=== PATIENT | male | born 1950 | race Caucasian/White ===

== ENCOUNTER 2021-07-03 05:06 | Inpatient (IN) | payer MEDICARE, MEDICAID ==
[~2021-07-03] VITALS: Ht 172.7 cm; Wt 93.9 kg
[2021-07-03 05:51] LABS: BASOPHILS % 0.3 % (0.0-2.0); EOSINOPHILS % 0.8 % (0.0-5.0); HEMATOCRIT. 37.3 % (42.0-52.0); HEMOGLOBIN. 12.5 g/dL (14.0-18.0); LYMPHOCYTES % 8.2 % (20.0-50.0); MEAN CORPUSCULAR HEMOGLOBIN 31.1 pg (28.0-32.0); MEAN CORPUSCULAR VOLUME 92.7 fL (80.0-94.0); MEAN PLATELET VOLUME 8.7 fl (7.4-10.4); MONOCYTES % 5.8 % (2.0-8.0); NEUTROPHILS % 84.9 % (40.0-76.0); PLATELET 115 x1000/uL (130-400); RED BLOOD CELL COUNT 4.03 mill/uL (4.7-6.1); RED CELL DISTRIBUTION WIDTH 16.5 % (11.6-14.6)
[2021-07-03 05:57] LABS: CHLORIDE 102 mEq/L (98-107)
[2021-07-03 11:40] LABS: T4 FREE 1.05 ng/dL (0.76-1.46)
[2021-07-03] MEDS ORDERED: DIPHENHYDRAMINE 50MG/ML VIAL IV PRN (11:45)
[2021-07-03] MEDS ORDERED: ZOLPIDEM TARTRATE 5MG TABLET PO PRN (11:45)
[2021-07-03] MEDS ORDERED: ACETAMINOPHEN 325MG TABLET PO PRN ×2 (11:45)
[2021-07-03] MEDS ORDERED: DEXTROSE 50% WATER 50ML SYRINGE IV PRN (11:45)
[2021-07-03] MEDS ORDERED: ENOXAPARIN 40MG/0.4ML SYR SUBCUT SCH (11:45)
[2021-07-03] MEDS ORDERED: DOCUSATE SODIUM 100MG CAPSULE PO PRN (11:45)
[2021-07-03] MEDS ORDERED: NITROGLYCERIN 0.4MG TABLET SL SL PRN (11:45)
[2021-07-03] MEDS ORDERED: MAGNESIUM/ALUMINUM HYDROXIDE/SIMETHICONE 30ML UDC PO PRN (11:45)
[2021-07-03] MEDS ORDERED: ONDANSETRON HCL 4MG/2ML INJ IV PRN (11:45)
[2021-07-03] MEDS ORDERED: TRAMADOL 50MG TABLET PO PRN (11:45)
[2021-07-03] MEDS ORDERED: GUAIFENESIN 200MG/10ML SUGAR FREE UDC PO PRN (11:45)
[2021-07-03] MEDS: BLOOD SUGAR DIAGNOSTIC STRIP TEST SCH ×3 (13:00→20:47)
[2021-07-03 13:12] LABS: FOLIC ACID (FOLATE) SERUM 6.1 ng/mL (>5.38)
[2021-07-03] MEDS: INSULIN LISPRO 100 UNITS/ML SUBCUT SCH ×3 (13:20→21:00)
[2021-07-03 13:59] LABS: HEPATITIS B SURFACE ANTIGEN NEGATIVE
[2021-07-03] MEDS: SEVELAMER CARBONATE 800 MG TABLET PO SCH ×2 (14:48→17:48)
[2021-07-03] MEDS: FAMOTIDINE 20MG TABLET PO SCH (14:48)
[2021-07-03] MEDS: ENOXAPARIN 30MG/0.3ML SYR SUBCUT SCH (14:52)
[2021-07-03 16:00] VITALS: BP 154/64
[2021-07-03 17:00] VITALS: BP 154/64
[2021-07-03 20:49] VITALS: BP 104/46
[2021-07-03] MEDS ORDERED: FAMOTIDINE 20MG TABLET PO SCH (21:00)
[2021-07-03] MEDS: ASCORBIC ACID 500 MG TABLET PO SCH (21:32)
[2021-07-04] VITALS: BP 105/48
[2021-07-04 00:40] LABS: CREATINE KINASE MB FRACTION 2.6 ng/mL (0.5-3.6)
[2021-07-04 04:05] VITALS: BP 137/69
[2021-07-04] MEDS: BLOOD SUGAR DIAGNOSTIC STRIP TEST SCH ×4 (05:33→20:35)
[2021-07-04 07:30] LABS: BASOPHILS % 0.8 % (0.0-2.0); EOSINOPHILS % 2.2 % (0.0-5.0); HEMATOCRIT. 32.2 % (42.0-52.0); HEMOGLOBIN. 10.8 g/dL (14.0-18.0); LYMPHOCYTES % 11.7 % (20.0-50.0); MEAN CORPUSCULAR HEMOGLOBIN 30.9 pg (28.0-32.0); MEAN CORPUSCULAR VOLUME 92.4 fL (80.0-94.0); MEAN PLATELET VOLUME 9.2 fl (7.4-10.4); NEUTROPHILS % 74.3 % (40.0-76.0); PLATELET 83 x1000/uL (130-400); RED BLOOD CELL COUNT 3.49 mill/uL (4.7-6.1); RED CELL DISTRIBUTION WIDTH 16.3 % (11.6-14.6)
[2021-07-04 07:37] LABS: CHLORIDE 106 mEq/L (98-107)
[2021-07-04] MEDS: INSULIN LISPRO 100 UNITS/ML SUBCUT SCH ×4 (07:40→20:35)
[2021-07-04 07:47] LABS: PHOSPHORUS 3.5 mg/dL (2.5-4.9)
[2021-07-04 08:00] VITALS: BP 132/65
[2021-07-04] MEDS: ENOXAPARIN 30MG/0.3ML SYR SUBCUT SCH (09:00)
[2021-07-04] MEDS: ASCORBIC ACID 500 MG TABLET PO SCH ×3 (10:25→20:38)
[2021-07-04] MEDS: CHOLECALCIFEROL (D3) 1000 UNIT TABLET PO SCH (10:25)
[2021-07-04] MEDS: FAMOTIDINE 20MG TABLET PO SCH (10:25)
[2021-07-04] MEDS: ZINC SULFATE 220 MG ( 50 ) CAPSULE PO SCH (10:26)
[2021-07-04] MEDS: SEVELAMER CARBONATE 800 MG TABLET PO SCH ×3 (10:26→17:40)
[2021-07-04] MEDS: ASPIRIN 325MG EC TABLET PO SCH (10:27)
[2021-07-04 12:00] VITALS: BP 138/68
[2021-07-04] MEDS: FOLIC ACID/VITAMIN B COMP W-C TABLET PO SCH (15:34)
[2021-07-04 16:00] VITALS: BP 140/70
[2021-07-04 20:00] VITALS: BP 147/117
[2021-07-04] MEDS: IPRATROPIUM/ALBUTEROL 0.5-3(2.5)MG/3ML NEB NEB PRN (23:51)
[2021-07-05] VITALS (8 sets, daily range): BP systolic 132–186; BP diastolic 51–92
[2021-07-05] MEDS: BLOOD SUGAR DIAGNOSTIC STRIP TEST SCH ×4 (07:20→21:30)
[2021-07-05] MEDS: INSULIN LISPRO 100 UNITS/ML SUBCUT SCH ×4 (07:20→21:00)
[2021-07-05 07:43] LABS: BASOPHILS % 0.8 % (0.0-2.0); EOSINOPHILS % 1.9 % (0.0-5.0); HEMOGLOBIN. 10.9 g/dL (14.0-18.0); LYMPHOCYTES % 13.5 % (20.0-50.0); MEAN CORPUSCULAR HEMOGLOBIN 31.4 pg (28.0-32.0); MEAN CORPUSCULAR VOLUME 92.6 fL (80.0-94.0); MEAN PLATELET VOLUME 9.5 fl (7.4-10.4); MONOCYTES % 9.7 % (2.0-8.0); NEUTROPHILS % 74.1 % (40.0-76.0); PLATELET 64 x1000/uL (130-400); RED BLOOD CELL COUNT 3.46 mill/uL (4.7-6.1); RED CELL DISTRIBUTION WIDTH 16.5 % (11.6-14.6)
[2021-07-05 07:53] LABS: PHOSPHORUS 4.1 mg/dL (2.5-4.9)
[2021-07-05] MEDS: ZINC SULFATE 220 MG ( 50 ) CAPSULE PO SCH (08:08)
[2021-07-05] MEDS: FOLIC ACID/VITAMIN B COMP W-C TABLET PO SCH (08:08)
[2021-07-05] MEDS: SEVELAMER CARBONATE 800 MG TABLET PO SCH ×3 (08:08→16:57)
[2021-07-05] MEDS: ASPIRIN 325MG EC TABLET PO SCH (08:09)
[2021-07-05] MEDS: CLONIDINE 0.1MG TABLET PO PRN (08:09)
[2021-07-05] MEDS: FAMOTIDINE 20MG TABLET PO SCH (08:09)
[2021-07-05] MEDS: CHOLECALCIFEROL (D3) 1000 UNIT TABLET PO SCH (08:09)
[2021-07-05] MEDS: ASCORBIC ACID 500 MG TABLET PO SCH ×2 (08:09→21:41)
[2021-07-05] MEDS: ENOXAPARIN 40MG/0.4ML SYR SUBCUT SCH (08:14)
[2021-07-05] MEDS ORDERED: SODIUM POLYSTYRENE SULFONATE 15 G/60 ML BOT PO SCH (10:45)
[2021-07-05] MEDS: HYDRALAZINE HCL 25MG TABLET PO SCH ×2 (13:22→21:41)
[2021-07-05] MEDS ORDERED: NALOXONE HCL 0.4MG/ML VIAL IV PRN (17:15)
[2021-07-06] MEDS: IPRATROPIUM/ALBUTEROL 0.5-3(2.5)MG/3ML NEB NEB PRN (01:10)
[2021-07-06 03:58] VITALS: BP 147/65
[2021-07-06] MEDS: HYDRALAZINE HCL 25MG TABLET PO SCH ×3 (06:00→21:14)
[2021-07-06] MEDS: BLOOD SUGAR DIAGNOSTIC STRIP TEST SCH ×4 (07:05→21:12)
[2021-07-06] MEDS: INSULIN LISPRO 100 UNITS/ML SUBCUT SCH ×4 (07:06→21:00)
[2021-07-06 08:00] VITALS: BP 146/71
[2021-07-06 08:20] LABS: BASOPHILS % 0.8 % (0.0-2.0); EOSINOPHILS % 2.9 % (0.0-5.0); HEMATOCRIT. 31.7 % (42.0-52.0); HEMOGLOBIN. 10.7 g/dL (14.0-18.0); LYMPHOCYTES % 14.3 % (20.0-50.0); MEAN CORPUSCULAR HEMOGLOBIN 31.3 pg (28.0-32.0); MEAN CORPUSCULAR VOLUME 93.1 fL (80.0-94.0); MEAN PLATELET VOLUME 9.1 fl (7.4-10.4); MONOCYTES % 9.3 % (2.0-8.0); NEUTROPHILS % 72.7 % (40.0-76.0); PLATELET 56 x1000/uL (130-400); RED CELL DISTRIBUTION WIDTH 15.9 % (11.6-14.6)
[2021-07-06] MEDS: ENOXAPARIN 40MG/0.4ML SYR SUBCUT SCH (08:25)
[2021-07-06] MEDS: ASPIRIN 325MG EC TABLET PO SCH (08:31)
[2021-07-06] MEDS: FOLIC ACID/VITAMIN B COMP W-C TABLET PO SCH (08:31)
[2021-07-06] MEDS: ZINC SULFATE 220 MG ( 50 ) CAPSULE PO SCH (08:31)
[2021-07-06] MEDS: SEVELAMER CARBONATE 800 MG TABLET PO SCH ×3 (08:31→16:40)
[2021-07-06] MEDS: ASCORBIC ACID 500 MG TABLET PO SCH ×2 (08:32→21:15)
[2021-07-06] MEDS: CHOLECALCIFEROL (D3) 1000 UNIT TABLET PO SCH (08:32)
[2021-07-06] MEDS: FAMOTIDINE 20MG TABLET PO SCH (08:32)
[2021-07-06 08:42] LABS: PHOSPHORUS 4.9 mg/dL (2.5-4.9)
[2021-07-06 12:00] VITALS: BP 154/58
[2021-07-06 16:00] VITALS: BP 172/76
[2021-07-06] MEDS: CLONIDINE 0.1MG TABLET PO PRN (16:33)
[2021-07-06 20:00] VITALS: BP 112/61
[2021-07-07] VITALS: BP 142/72
[2021-07-07 04:00] VITALS: BP 153/68
[2021-07-07] MEDS: HYDRALAZINE HCL 25MG TABLET PO SCH (05:25)
[2021-07-07] MEDS: BLOOD SUGAR DIAGNOSTIC STRIP TEST SCH (07:19)
[2021-07-07] MEDS: INSULIN LISPRO 100 UNITS/ML SUBCUT SCH (07:19)
[2021-07-07 08:00] VITALS: BP 167/63
[2021-07-07] MEDS: FOLIC ACID/VITAMIN B COMP W-C TABLET PO SCH (09:22)
[2021-07-07] MEDS: ASPIRIN 325MG EC TABLET PO SCH (09:23)
[2021-07-07] MEDS: FAMOTIDINE 20MG TABLET PO SCH (09:23)
[2021-07-07] MEDS: SEVELAMER CARBONATE 800 MG TABLET PO SCH (09:23)
[2021-07-07] MEDS: CHOLECALCIFEROL (D3) 1000 UNIT TABLET PO SCH (09:23)
[2021-07-07] MEDS: ASCORBIC ACID 500 MG TABLET PO SCH (09:23)
[2021-07-07] MEDS: ZINC SULFATE 220 MG ( 50 ) CAPSULE PO SCH (09:24)
[2021-07-07 11:55] VITALS: BP 145/69
== END 2021-07-07 15:00 | disposition home or self-care (01) | DRG 291 ==
LOC: ER 05:06 → EDBEDREQTM 08:32 → EDBEDREQ 08:32 → 8WST 09:33 → EDBEDREQTM 09:43 → EDBEDREQ 09:43 → SUPCPDRO 11:00 → ENRESERV 13:06 → 8WST 07-04 19:59
PROVIDERS: ADMIT Internal Medicine; ATTEND Internal Medicine
PROC: 5A1D70Z Performance of Urinary Filtration, Intermittent, Less than 6 Hours Per Day (ICD-10-PCS; principal; 2021-07-04)
PROC: 5A1D70Z Performance of Urinary Filtration, Intermittent, Less than 6 Hours Per Day (ICD-10-PCS; 2021-07-06)
DX: I13.2 Hypertensive heart and chronic kidney disease with heart failure and with stage 5 chronic kidney disease, or end stage renal disease (principal); N18.6 End stage renal disease; I50.33 Acute on chronic diastolic (congestive) heart failure; E11.22 Type 2 diabetes mellitus with diabetic chronic kidney disease; D63.1 Anemia in chronic kidney disease; D69.6 Thrombocytopenia, unspecified; E78.5 Hyperlipidemia, unspecified; E83.39 Other disorders of phosphorus metabolism; E87.5 Hyperkalemia; F32.9 Major depressive disorder, single episode, unspecified; I27.20 Pulmonary hypertension, unspecified; I48.91 Unspecified atrial fibrillation; H54.3 Unqualified visual loss, both eyes; Z20.822 Contact with and (suspected) exposure to COVID-19; Z79.899 Other long term (current) drug therapy; Z79.4 Long term (current) use of insulin; Z79.01 Long term (current) use of anticoagulants; Z99.2 Dependence on renal dialysis; Z86.15 Personal history of latent tuberculosis infection; Z86.73 Personal history of transient ischemic attack (TIA), and cerebral infarction without residual deficits
CPT/HCPCS: 36415; 71045; 80048; 80053; 80061; 80069; 82550; 82553; 82607; 82746; 82962; 83036; 83540; 83550; 83605; 83735; 83880; 84100; 84145; 84439; 84443; 84484; 85025; 86705; 86709; 86803; 87340; 87426; 93005; 93306; 93970; 94640; 94664; 97162; 97166; 97535; 99291; C9803; J1650

== ENCOUNTER 2021-11-29 09:02 | Inpatient (IN) | payer MEDICARE, MEDICAID ==
[~2021-11-29] VITALS: Ht 167.6 cm; Wt 90.7 kg
[2021-11-29] MEDS ORDERED: TETRACAINE 0.5% OPHTH DROPS 4ML RIGHTEYE ONE (10:45)
[2021-11-29] MEDS ORDERED: FLUORESCEIN SODIUM 1MG/STRIP RIGHTEYE ONE (10:45)
[2021-11-29 10:49] LABS: BASOPHILS % 0.7 % (0.0-2.0); EOSINOPHILS % 1.8 % (0.0-5.0); HEMATOCRIT. 34.8 % (42.0-52.0); HEMOGLOBIN. 11.7 g/dL (14.0-18.0); MEAN CORPUSCULAR HEMOGLOBIN 31.9 pg (28.0-32.0); MEAN CORPUSCULAR VOLUME 94.6 fL (80.0-94.0); MEAN PLATELET VOLUME 9.6 fl (7.4-10.4); NEUTROPHILS % 80.5 % (40.0-76.0); PLATELET 90 x1000/uL (130-400); RED BLOOD CELL COUNT 3.68 mill/uL (4.7-6.1); RED CELL DISTRIBUTION WIDTH 15.6 % (11.6-14.6)
[2021-11-29 10:53] LABS: CHLORIDE 105 mEq/L (98-107)
[2021-11-29 10:53] LABS: CLARITY URINE CLOUDY (CLEAR); COLOR URINE YELLOW (YELLOW); KETONES URINE TRACE (NEGATIVE); LEUKOCYTE ESTERASE URINE 2+ (NEGATIVE); NITRITE URINE NEGATIVE (NEGATIVE); OCCULT BLOOD URINE 2+ (NEGATIVE); PROTEIN URINE 3+ (NEGATIVE); SPECIFIC GRAVITY URINE 1.016 (1.005-1.030)
[2021-11-29] MEDS ORDERED: CEFTRIAXONE 2 G in DEXTROSE 5% WATER 50 ML IV NR (12:00)
[2021-11-29] MEDS ORDERED: SODIUM CHLORIDE 0.9% 500 ML IV ONE (12:15)
[2021-11-29] MEDS ORDERED: NITROGLYCERIN 0.4MG TABLET SL SL PRN (16:15)
[2021-11-29] MEDS ORDERED: IPRATROPIUM/ALBUTEROL 0.5-3(2.5)MG/3ML NEB NEB PRN (16:15)
[2021-11-29] MEDS ORDERED: DOCUSATE SODIUM 100MG CAPSULE PO PRN (16:15)
[2021-11-29] MEDS ORDERED: ONDANSETRON HCL 4MG/2ML INJ IV PRN (16:15)
[2021-11-29] MEDS ORDERED: GUAIFENESIN 200MG/10ML SUGAR FREE UDC PO PRN (16:15)
[2021-11-29] MEDS ORDERED: MAGNESIUM/ALUMINUM HYDROXIDE/SIMETHICONE 30ML UDC PO PRN (16:15)
[2021-11-29] MEDS ORDERED: ACETAMINOPHEN 325MG TABLET PO PRN (16:15)
[2021-11-29] MEDS ORDERED: DEXTROSE 50% WATER 50ML SYRINGE IV PRN (16:30)
[2021-11-29] MEDS ORDERED: PIPERACILLIN/TAZ 3.375G PREMIX 50 ML IV SCH (17:30)
[2021-11-29] MEDS ORDERED: VANCOMYCIN 1500MG in DEXTROSE 5% WATER 250ML IV NR (18:00)
[2021-11-29 20:00] VITALS: BP 150/57
[2021-11-29] MEDS: INSULIN LISPRO 100 UNITS/ML SUBCUT SCH (21:00)
[2021-11-29] MEDS: BLOOD SUGAR DIAGNOSTIC STRIP TEST SCH (21:00)
[2021-11-29] MEDS: SEVELAMER CARBONATE 800 MG TABLET PO SCH (21:59)
[2021-11-29] MEDS: ENOXAPARIN 30MG/0.3ML SYR SUBCUT SCH (21:59)
[2021-11-29] MEDS: ZOLPIDEM TARTRATE 5MG TABLET PO PRN (22:00)
[2021-11-29] MEDS: FAMOTIDINE 20MG TABLET PO SCH (22:00)
[2021-11-29] MEDS: PIPERACILLIN/TAZOBACTAM 3.375 G in DEXTROSE 5% WATER 50 ML IV SCH (22:00)
[2021-11-30] VITALS: BP 157/61
[2021-11-30 04:00] VITALS: BP 131/76
[2021-11-30] MEDS: BLOOD SUGAR DIAGNOSTIC STRIP TEST SCH ×4 (06:18→21:00)
[2021-11-30 06:23] LABS: BASOPHILS % 1.5 % (0.0-2.0); EOSINOPHILS % 6.8 % (0.0-5.0); HEMATOCRIT. 33.3 % (42.0-52.0); LYMPHOCYTES % 11.4 % (20.0-50.0); MEAN CORPUSCULAR HEMOGLOBIN 31.6 pg (28.0-32.0); MEAN CORPUSCULAR VOLUME 95.3 fL (80.0-94.0); MEAN PLATELET VOLUME 9.6 fl (7.4-10.4); NEUTROPHILS % 70.3 % (40.0-76.0); PLATELET 82 x1000/uL (130-400); RED BLOOD CELL COUNT 3.49 mill/uL (4.7-6.1); RED CELL DISTRIBUTION WIDTH 15.7 % (11.6-14.6)
[2021-11-30 06:59] LABS: CHLORIDE 108 mEq/L (98-107)
[2021-11-30] MEDS: INSULIN LISPRO 100 UNITS/ML SUBCUT SCH ×4 (07:40→21:00)
[2021-11-30 08:00] VITALS: BP 149/69
[2021-11-30] MEDS: PIPERACILLIN/TAZOBACTAM 3.375 G in DEXTROSE 5% WATER 50 ML IV SCH ×2 (08:44→22:21)
[2021-11-30] MEDS: FAMOTIDINE 20MG TABLET PO SCH ×2 (08:45→22:35)
[2021-11-30] MEDS: ASPIRIN 325MG EC TABLET PO SCH (08:45)
[2021-11-30] MEDS: SEVELAMER CARBONATE 800 MG TABLET PO SCH ×3 (08:45→17:04)
[2021-11-30] MEDS ORDERED: PIPERACILLIN/TAZOBACTAM 3.375 G in DEXTROSE 5% WATER 50 ML IV SCH (09:00)
[2021-11-30 09:27] LABS: *AMPHETAMINES SCREEN URINE NEGATIVE (NEGATIVE); *BARBITURATES SCREEN URINE NEGATIVE (NEGATIVE); *BENZODIAZEPINES SCREEN URINE NEGATIVE (NEGATIVE); *COCAINE SCREEN URINE NEGATIVE (NEGATIVE); CANNABINOID URINE SCREEN NEGATIVE (NEGATIVE); METHADONE URINE SCREEN NEGATIVE (NEGATIVE); OPIATES URINE SCREEN NEGATIVE (NEGATIVE); PHENCYCLIDINE URINE SCREEN NEGATIVE (NEGATIVE)
[2021-11-30] MEDS: FOLIC ACID/VITAMIN B COMP W-C TABLET PO SCH (11:50)
[2021-11-30 12:00] VITALS: BP 121/47
[2021-11-30 16:00] VITALS: BP 126/63
[2021-11-30] MEDS: ENOXAPARIN 30MG/0.3ML SYR SUBCUT SCH (17:04)
[2021-11-30 20:00] VITALS: BP 140/80
[2021-11-30] MEDS: ZOLPIDEM TARTRATE 5MG TABLET PO PRN (20:50)
[2021-12-01] VITALS: BP 112/70
[2021-12-01 04:00] VITALS: BP 121/70
[2021-12-01] MEDS: INSULIN LISPRO 100 UNITS/ML SUBCUT SCH ×4 (05:22→20:16)
[2021-12-01] MEDS: BLOOD SUGAR DIAGNOSTIC STRIP TEST SCH ×4 (05:22→20:16)
[2021-12-01 08:00] VITALS: BP 193/73
[2021-12-01 09:01] LABS: HEPATITIS B SURFACE ANTIGEN NEGATIVE
[2021-12-01] MEDS: FAMOTIDINE 20MG TABLET PO SCH ×2 (09:33→20:04)
[2021-12-01] MEDS: ASPIRIN 325MG EC TABLET PO SCH (09:33)
[2021-12-01] MEDS: SEVELAMER CARBONATE 800 MG TABLET PO SCH ×2 (09:33→18:40)
[2021-12-01] MEDS: CLONIDINE 0.1MG TABLET PO PRN (09:34)
[2021-12-01] MEDS: PIPERACILLIN/TAZOBACTAM 3.375 G in DEXTROSE 5% WATER 50 ML IV SCH ×2 (09:39→20:04)
[2021-12-01] MEDS: FOLIC ACID/VITAMIN B COMP W-C TABLET PO SCH (09:39)
[2021-12-01] MEDS: NIFEDIPINE XL 60MG TAB PO SCH (11:54)
[2021-12-01 12:11] VITALS: BP 177/61
[2021-12-01] MEDS ORDERED: VANCOMYCIN 750MG PREMIX 150 ML IV NR (15:00)
[2021-12-01 16:10] VITALS: BP 150/61
[2021-12-01] MEDS: ENOXAPARIN 30MG/0.3ML SYR SUBCUT SCH (18:39)
[2021-12-01 20:00] VITALS: BP 145/60
[2021-12-01] MEDS: ZOLPIDEM TARTRATE 5MG TABLET PO PRN (20:04)
[2021-12-02] VITALS: BP 135/60
[2021-12-02 04:00] VITALS: BP 140/65
[2021-12-02] MEDS: BLOOD SUGAR DIAGNOSTIC STRIP TEST SCH ×4 (05:27→20:27)
[2021-12-02] MEDS: INSULIN LISPRO 100 UNITS/ML SUBCUT SCH ×4 (05:27→20:28)
[2021-12-02 08:00] VITALS: BP 140/71
[2021-12-02] MEDS: ACETAMINOPHEN 325MG TABLET PO PRN (09:44)
[2021-12-02] MEDS: FOLIC ACID/VITAMIN B COMP W-C TABLET PO SCH (09:45)
[2021-12-02] MEDS: ASPIRIN 325MG EC TABLET PO SCH (09:45)
[2021-12-02] MEDS: FAMOTIDINE 20MG TABLET PO SCH (09:45)
[2021-12-02] MEDS: SEVELAMER CARBONATE 800 MG TABLET PO SCH ×3 (09:45→18:07)
[2021-12-02] MEDS: NIFEDIPINE XL 60MG TAB PO SCH (11:49)
[2021-12-02] MEDS: PIPERACILLIN/TAZOBACTAM 3.375 G in DEXTROSE 5% WATER 50 ML IV SCH (11:52)
[2021-12-02 12:00] VITALS: BP 178/78
[2021-12-02 16:00] VITALS: BP 168/80
[2021-12-02] MEDS: ENOXAPARIN 30MG/0.3ML SYR SUBCUT SCH (17:00)
[2021-12-02 20:00] VITALS: BP 145/80
[2021-12-02] MEDS: CEFEPIME 1,000 MG in DEXTROSE 5% WATER 50 ML IV SCH (21:29)
[2021-12-03] VITALS: BP 140/75
[2021-12-03] MEDS: DIPHENHYDRAMINE 50MG/ML VIAL IV PRN ×2 (01:11→20:52)
[2021-12-03] MEDS: ACETAMINOPHEN 325MG TABLET PO PRN (01:12)
[2021-12-03 04:00] VITALS: BP 141/63
[2021-12-03] MEDS: INSULIN LISPRO 100 UNITS/ML SUBCUT SCH ×4 (06:08→20:53)
[2021-12-03] MEDS: BLOOD SUGAR DIAGNOSTIC STRIP TEST SCH ×4 (06:08→20:53)
[2021-12-03 07:17] LABS: BASOPHILS % 1.2 % (0.0-2.0); EOSINOPHILS % 5.2 % (0.0-5.0); HEMATOCRIT. 31.8 % (42.0-52.0); HEMOGLOBIN. 10.9 g/dL (14.0-18.0); LYMPHOCYTES % 11.9 % (20.0-50.0); MEAN CORPUSCULAR HEMOGLOBIN 31.5 pg (28.0-32.0); MEAN PLATELET VOLUME 9.4 fl (7.4-10.4); NEUTROPHILS % 72.7 % (40.0-76.0); PLATELET 81 x1000/uL (130-400); RED BLOOD CELL COUNT 3.45 mill/uL (4.7-6.1); RED CELL DISTRIBUTION WIDTH 15.4 % (11.6-14.6)
[2021-12-03 07:35] LABS: CHLORIDE 106 mEq/L (98-107)
[2021-12-03 08:00] VITALS: BP 100/66
[2021-12-03] MEDS: NIFEDIPINE XL 60MG TAB PO SCH ×2 (09:00→12:17)
[2021-12-03] MEDS: FOLIC ACID/VITAMIN B COMP W-C TABLET PO SCH (09:25)
[2021-12-03] MEDS: FAMOTIDINE 20MG TABLET PO SCH (09:25)
[2021-12-03] MEDS: SEVELAMER CARBONATE 800 MG TABLET PO SCH ×3 (09:25→18:07)
[2021-12-03] MEDS: ASPIRIN 325MG EC TABLET PO SCH (09:25)
[2021-12-03 12:00] VITALS: BP 208/61
[2021-12-03] MEDS: CLONIDINE 0.1MG TABLET PO PRN (12:17)
[2021-12-03] MEDS ORDERED: LOSARTAN POTASSIUM 50 MG TABLET PO SCH (13:00)
[2021-12-03 16:00] VITALS: BP 159/73
[2021-12-03] MEDS: LOSARTAN POTASSIUM 50 MG TABLET PO SCH (18:07)
[2021-12-03 20:00] VITALS: BP 109/57
[2021-12-03] MEDS: CEFEPIME 1,000 MG in DEXTROSE 5% WATER 50 ML IV SCH (20:52)
[2021-12-03] MEDS: ZOLPIDEM TARTRATE 5MG TABLET PO PRN (20:52)
[2021-12-04] VITALS: BP 147/80
[2021-12-04 04:00] VITALS: BP 155/85
[2021-12-04] MEDS: INSULIN LISPRO 100 UNITS/ML SUBCUT SCH ×4 (05:33→20:27)
[2021-12-04] MEDS: BLOOD SUGAR DIAGNOSTIC STRIP TEST SCH ×4 (05:33→20:27)
[2021-12-04 08:03] VITALS: BP 155/66
[2021-12-04] MEDS: ASPIRIN 325MG EC TABLET PO SCH (09:18)
[2021-12-04] MEDS: LOSARTAN POTASSIUM 50 MG TABLET PO SCH (09:18)
[2021-12-04] MEDS: SEVELAMER CARBONATE 800 MG TABLET PO SCH ×3 (09:19→18:49)
[2021-12-04] MEDS: NIFEDIPINE XL 60MG TAB PO SCH (09:19)
[2021-12-04] MEDS: FAMOTIDINE 20MG TABLET PO SCH (09:19)
[2021-12-04] MEDS: FOLIC ACID/VITAMIN B COMP W-C TABLET PO SCH (09:19)
[2021-12-04 12:00] VITALS: BP 140/82
[2021-12-04] MEDS ORDERED: CEFAZOLIN 1000MG PREMIX 50 ML IV SCH (14:00)
[2021-12-04] MEDS ORDERED: HYDR100T26 PO (15:31)
[2021-12-04] MEDS ORDERED: SEVE800T8 PO (15:31)
[2021-12-04] MEDS ORDERED: APIX5TAB PO (15:31)
[2021-12-04] MEDS ORDERED: ACET125T3 MT (15:31)
[2021-12-04] MEDS ORDERED: GLIP5TAB12 PO (15:31)
[2021-12-04] MEDS ORDERED: NIFE20CA PO (15:31)
[2021-12-04 16:00] VITALS: BP 120/82
[2021-12-04] MEDS: CEFAZOLIN 1000MG PREMIX 50 ML IV SCH ×2 (16:00→16:35)
[2021-12-04] MEDS ORDERED: ROPIVACAINE HCL/PF EPIDURAL 200 ML EPI ONE (18:53)
[2021-12-04 20:00] VITALS: BP 130/80
[2021-12-05] VITALS (7 sets, daily range): BP systolic 127–178; BP diastolic 50–75
[2021-12-05] MEDS: BLOOD SUGAR DIAGNOSTIC STRIP TEST SCH ×2 (05:42→12:10)
[2021-12-05] MEDS: INSULIN LISPRO 100 UNITS/ML SUBCUT SCH ×2 (05:43→12:40)
[2021-12-05] MEDS: NIFEDIPINE XL 60MG TAB PO SCH (09:59)
[2021-12-05] MEDS: LOSARTAN POTASSIUM 50 MG TABLET PO SCH (09:59)
[2021-12-05] MEDS: ASPIRIN 325MG EC TABLET PO SCH (10:01)
[2021-12-05] MEDS: FOLIC ACID/VITAMIN B COMP W-C TABLET PO SCH (10:01)
[2021-12-05] MEDS: FAMOTIDINE 20MG TABLET PO SCH (10:01)
[2021-12-05] MEDS: SEVELAMER CARBONATE 800 MG TABLET PO SCH ×2 (10:01→14:26)
[2021-12-05] MEDS: ACETAMINOPHEN 325MG TABLET PO PRN (12:05)
[2021-12-05] MEDS: CEFAZOLIN 1000MG PREMIX 50 ML IV SCH (15:45)
== END 2021-12-05 18:18 | DRG 871 ==
LOC: ER 09:02 → ENRESERV 12:47 → CANRESERV 12:47 → 8WST 14:01 → EDBEDREQ 14:05 → EDBEDREQTM 14:05 → EDBEDREQSVC 16:34 → ENRESERV 16:39
PROVIDERS: ADMIT Internal Medicine; ATTEND Internal Medicine
PROC: 5A1D70Z Performance of Urinary Filtration, Intermittent, Less than 6 Hours Per Day (ICD-10-PCS; principal; 2021-11-30)
PROC: 5A1D70Z Performance of Urinary Filtration, Intermittent, Less than 6 Hours Per Day (ICD-10-PCS; 2021-12-02)
PROC: 5A1D70Z Performance of Urinary Filtration, Intermittent, Less than 6 Hours Per Day (ICD-10-PCS; 2021-12-05)
DX: A41.9 Sepsis, unspecified organism (principal); G92.8 Other toxic encephalopathy; N18.6 End stage renal disease; I13.2 Hypertensive heart and chronic kidney disease with heart failure and with stage 5 chronic kidney disease, or end stage renal disease; N39.0 Urinary tract infection, site not specified; I69.351 Hemiplegia and hemiparesis following cerebral infarction affecting right dominant side; B96.20 Unspecified Escherichia coli [E. coli] as the cause of diseases classified elsewhere; D63.1 Anemia in chronic kidney disease; K80.20 Calculus of gallbladder without cholecystitis without obstruction; D69.6 Thrombocytopenia, unspecified; K76.0 Fatty (change of) liver, not elsewhere classified; E11.22 Type 2 diabetes mellitus with diabetic chronic kidney disease; E87.6 Hypokalemia; I50.9 Heart failure, unspecified; Z20.822 Contact with and (suspected) exposure to COVID-19; Z99.2 Dependence on renal dialysis; Z79.4 Long term (current) use of insulin; Z83.3 Family history of diabetes mellitus; Z82.49 Family history of ischemic heart disease and other diseases of the circulatory system
CPT/HCPCS: 36415; 70551; 71045; 76700; 80053; 80069; 80202; 80305; 81003; 82140; 82962; 83036; 83605; 83735; 84100; 84484; 85025; 86705; 86709; 86803; 87077; 87186; 87340; 87426; 93970; 97110; 97116; 97162; 97166; 99285; C1893; J0690; J0692; J0696; J1200; J1650; J2543; J2795; J3370; J7060

== ENCOUNTER 2022-01-04 09:33 | Inpatient (IN) | payer MEDICARE, MEDICAID ==
[~2022-01-04] VITALS: Ht 167.6 cm; Wt 88.5 kg
[~2022-01-04 09:33] MED LIST: ACET125T3 MT; APIX5TAB PO; GLIP5TAB12 PO; HYDR100T26 PO; NIFE20CA PO; SEVE800T8 PO
[2022-01-04 11:34] LABS: EOSINOPHILS % 4.2 % (0.0-5.0); HEMATOCRIT. 30.5 % (42.0-52.0); HEMOGLOBIN. 10.1 g/dL (14.0-18.0); LYMPHOCYTES % 14.6 % (20.0-50.0); MEAN CORPUSCULAR HEMOGLOBIN 32.7 pg (28.0-32.0); MEAN CORPUSCULAR VOLUME 98.7 fL (80.0-94.0); MEAN PLATELET VOLUME 9.3 fl (7.4-10.4); MONOCYTES % 7.2 % (2.0-8.0); PLATELET 86 x1000/uL (130-400); RED BLOOD CELL COUNT 3.09 mill/uL (4.7-6.1); RED CELL DISTRIBUTION WIDTH 16.6 % (11.6-14.6)
[2022-01-04 11:45] LABS: CHLORIDE 106 mEq/L (98-107)
[2022-01-04] MEDS ORDERED: ONDANSETRON HCL 4MG/2ML INJ IV PRN (14:45)
[2022-01-04] MEDS ORDERED: NA PHOS,M-B/NA PHOS,DI-BA ENEMA 118ML PR PRN (14:45)
[2022-01-04] MEDS ORDERED: DEXTROSE 50% WATER 50ML SYRINGE IV PRN (14:45)
[2022-01-04] MEDS ORDERED: GUAIFENESIN 200MG/10ML SUGAR FREE UDC PO PRN (14:45)
[2022-01-04] MEDS ORDERED: NITROGLYCERIN 0.4MG TABLET SL SL PRN (14:45)
[2022-01-04] MEDS ORDERED: MAGNESIUM/ALUMINUM HYDROXIDE/SIMETHICONE 30ML UDC PO PRN (14:45)
[2022-01-04] MEDS ORDERED: DOCUSATE SODIUM 100MG CAPSULE PO PRN (14:45)
[2022-01-04] MEDS ORDERED: ZOLPIDEM TARTRATE 5MG TABLET PO PRN (14:45)
[2022-01-04] MEDS ORDERED: IPRATROPIUM/ALBUTEROL 0.5-3(2.5)MG/3ML NEB NEB PRN (14:45)
[2022-01-04] MEDS ORDERED: ACETAMINOPHEN 325MG TABLET PO PRN (14:45)
[2022-01-04 16:00] VITALS: BP 155/69
[2022-01-04] MEDS: BLOOD SUGAR DIAGNOSTIC STRIP TEST SCH ×2 (17:20→21:00)
[2022-01-04] MEDS: INSULIN LISPRO 100 UNITS/ML SUBCUT SCH ×2 (17:50→21:00)
[2022-01-04 17:58] VITALS: BP 155/69
[2022-01-04] MEDS: SEVELAMER CARBONATE 800 MG TABLET PO SCH (18:52)
[2022-01-04] MEDS: APIXABAN 2.5 MG TABLET PO SCH (18:52)
[2022-01-04 20:00] VITALS: BP 98/62
[2022-01-05] VITALS (7 sets, daily range): BP systolic 121–169; BP diastolic 53–66
[2022-01-05 02:39] LABS: CREATINE KINASE MB FRACTION 1.5 ng/mL (0.5-3.6)
[2022-01-05] MEDS: ACETAMINOPHEN 325MG TABLET PO PRN (06:02)
[2022-01-05] MEDS: BLOOD SUGAR DIAGNOSTIC STRIP TEST SCH ×4 (06:02→20:30)
[2022-01-05] MEDS: APIXABAN 2.5 MG TABLET PO SCH ×2 (06:02→18:50)
[2022-01-05 07:44] LABS: BASOPHILS % 1.2 % (0.0-2.0); EOSINOPHILS % 3.9 % (0.0-5.0); HEMATOCRIT. 29.7 % (42.0-52.0); HEMOGLOBIN. 9.8 g/dL (14.0-18.0); LYMPHOCYTES % 13.7 % (20.0-50.0); MEAN CORPUSCULAR HEMOGLOBIN 32.8 pg (28.0-32.0); MEAN CORPUSCULAR VOLUME 98.9 fL (80.0-94.0); MEAN PLATELET VOLUME 9.3 fl (7.4-10.4); NEUTROPHILS % 74.2 % (40.0-76.0); PLATELET 74 x1000/uL (130-400); RED BLOOD CELL COUNT 3.01 mill/uL (4.7-6.1); RED CELL DISTRIBUTION WIDTH 16.2 % (11.6-14.6)
[2022-01-05] MEDS: INSULIN LISPRO 100 UNITS/ML SUBCUT SCH ×4 (07:50→20:30)
[2022-01-05 08:02] LABS: CREATINE KINASE MB FRACTION 2.1 ng/mL (0.5-3.6)
[2022-01-05 08:09] LABS: PHOSPHORUS 4.8 mg/dL (2.5-4.9)
[2022-01-05 08:17] LABS: CHLORIDE 104 mEq/L (98-107)
[2022-01-05] MEDS: ASPIRIN 81MG EC TABLET PO SCH (10:18)
[2022-01-05] MEDS: LOSARTAN POTASSIUM 50 MG TABLET PO SCH (10:18)
[2022-01-05] MEDS: SEVELAMER CARBONATE 800 MG TABLET PO SCH ×3 (10:18→18:50)
[2022-01-06] VITALS: BP 136/75
[2022-01-06 04:00] VITALS: BP 125/55
[2022-01-06] MEDS: APIXABAN 2.5 MG TABLET PO SCH ×2 (06:18→17:15)
[2022-01-06] MEDS: BLOOD SUGAR DIAGNOSTIC STRIP TEST SCH ×4 (06:40→21:13)
[2022-01-06] MEDS: INSULIN LISPRO 100 UNITS/ML SUBCUT SCH ×4 (06:41→21:00)
[2022-01-06] MEDS: SEVELAMER CARBONATE 800 MG TABLET PO SCH ×3 (07:57→17:15)
[2022-01-06 08:00] VITALS: BP 183/54
[2022-01-06] MEDS: LOSARTAN POTASSIUM 50 MG TABLET PO SCH (09:00)
[2022-01-06] MEDS: ASPIRIN 81MG EC TABLET PO SCH (09:00)
[2022-01-06 12:00] VITALS: BP 191/71
[2022-01-06 16:00] VITALS: BP 139/70
[2022-01-06] MEDS: ERYTHROMYCIN BASE 0.5% OPHTH OINT 3.5GM BOTHEYE SCH (17:15)
[2022-01-06 20:00] VITALS: BP 164/71
[2022-01-07] VITALS (18 sets, daily range): BP systolic 157–197; BP diastolic 52–98
[2022-01-07] MEDS: ERYTHROMYCIN BASE 0.5% OPHTH OINT 3.5GM BOTHEYE SCH ×3 (01:39→17:49)
[2022-01-07] MEDS: APIXABAN 2.5 MG TABLET PO SCH ×2 (05:17→17:54)
[2022-01-07] MEDS: BLOOD SUGAR DIAGNOSTIC STRIP TEST SCH ×4 (05:26→21:09)
[2022-01-07] MEDS: INSULIN LISPRO 100 UNITS/ML SUBCUT SCH ×4 (07:50→21:00)
[2022-01-07] MEDS: SEVELAMER CARBONATE 800 MG TABLET PO SCH ×3 (09:02→17:49)
[2022-01-07] MEDS: ASPIRIN 81MG EC TABLET PO SCH (09:03)
[2022-01-07 09:05] LABS: BASOPHILS % 0.9 % (0.0-2.0); HEMATOCRIT. 31.6 % (42.0-52.0); HEMOGLOBIN. 10.4 g/dL (14.0-18.0); LYMPHOCYTES % 13.1 % (20.0-50.0); MEAN CORPUSCULAR HEMOGLOBIN 32.6 pg (28.0-32.0); MEAN CORPUSCULAR VOLUME 99.4 fL (80.0-94.0); MEAN PLATELET VOLUME 9.7 fl (7.4-10.4); MONOCYTES % 7.3 % (2.0-8.0); NEUTROPHILS % 74.7 % (40.0-76.0); PLATELET 76 x1000/uL (130-400); RED BLOOD CELL COUNT 3.18 mill/uL (4.7-6.1); RED CELL DISTRIBUTION WIDTH 15.9 % (11.6-14.6)
[2022-01-07] MEDS: LOSARTAN POTASSIUM 50 MG TABLET PO SCH (09:07)
[2022-01-07] MEDS: CLONIDINE 0.1MG TABLET PO PRN ×2 (14:42→22:19)
[2022-01-07 18:21] LABS: PHOSPHORUS 4.5 mg/dL (2.5-4.9)
[2022-01-07] MEDS ORDERED: SODIUM BICARBONATE 8.4% 1 MEQ/ML 50ML SYR IV NR (18:30)
[2022-01-07 19:05] LABS: BG BASE EXCESS -6.5 mmol/L (-2.0-2.0); BG CARBOXYHEMOGLOBIN 0.2 % (0.5-1.5); BG DEOXYHEMOGLOBIN 3.5 % (0.0-5.0); BG FRACTION INSPIRED OXYGEN 24; BG HCO3 ACT 18.2 mmol/L (22.0-26.0); BG METHEMOGLOBIN 0.1 % (0.0-1.5); BG OXYGEN SATURATION 96.5 % (92.0-98.5); BG OXYHEMOGLOBIN 96.2 % (94.0-97.0); BG PH 7.359 (7.350-7.450); BG PO2 90.9 mmHg (75.0-100.0); BG SAMPLE SITE RIGHT RADIAL; BG TOTAL HEMOGLOBIN 10.3 g/dL (12.0-18.0); BG VENT MODE NASAL CANNULA
[2022-01-07] MEDS: CALCIUM GLUCONATE 100MG/ML 10ML VIAL IV NR ×2 (19:48→23:03)
[2022-01-07] MEDS: ACETAMINOPHEN 325MG TABLET PO PRN (22:19)
[2022-01-08] VITALS (13 sets, daily range): BP systolic 104–181; BP diastolic 55–95
[2022-01-08] MEDS: ERYTHROMYCIN BASE 0.5% OPHTH OINT 3.5GM BOTHEYE SCH ×3 (01:22→17:22)
[2022-01-08] MEDS: CLONIDINE 0.1MG TABLET PO PRN (06:16)
[2022-01-08] MEDS: APIXABAN 2.5 MG TABLET PO SCH ×2 (06:16→17:22)
[2022-01-08] MEDS: INSULIN LISPRO 100 UNITS/ML SUBCUT SCH ×4 (08:00→21:00)
[2022-01-08] MEDS: SEVELAMER CARBONATE 800 MG TABLET PO SCH ×3 (08:22→17:22)
[2022-01-08] MEDS: LOSARTAN POTASSIUM 50 MG TABLET PO SCH (08:23)
[2022-01-08] MEDS: ASPIRIN 81MG EC TABLET PO SCH (08:23)
[2022-01-08] MEDS: BLOOD SUGAR DIAGNOSTIC STRIP TEST SCH ×4 (08:23→21:00)
[2022-01-08 09:07] LABS: BASOPHILS % 1.7 % (0.0-2.0); EOSINOPHILS % 5.1 % (0.0-5.0); HEMATOCRIT. 29.1 % (42.0-52.0); LYMPHOCYTES % 18.7 % (20.0-50.0); MEAN CORPUSCULAR HEMOGLOBIN 33.2 pg (28.0-32.0); MEAN CORPUSCULAR VOLUME 96.8 fL (80.0-94.0); MEAN PLATELET VOLUME 9.3 fl (7.4-10.4); NEUTROPHILS % 64.5 % (40.0-76.0); PLATELET 70 x1000/uL (130-400); RED BLOOD CELL COUNT 3.01 mill/uL (4.7-6.1); RED CELL DISTRIBUTION WIDTH 15.2 % (11.6-14.6)
[2022-01-08 09:19] LABS: CHLORIDE 107 mEq/L (98-107)
[2022-01-08] MEDS ORDERED: ATROPINE SULFATE 1MG/ML VIAL IV PRN (10:15)
[2022-01-08 12:31] LABS: CREATINE KINASE 37 IU/L (39-308)
[2022-01-09] VITALS (18 sets, daily range): BP systolic 121–197; BP diastolic 55–80
[2022-01-09] MEDS: ERYTHROMYCIN BASE 0.5% OPHTH OINT 3.5GM BOTHEYE SCH ×3 (02:15→18:47)
[2022-01-09] MEDS: APIXABAN 2.5 MG TABLET PO SCH ×2 (06:29→18:47)
[2022-01-09] MEDS: BLOOD SUGAR DIAGNOSTIC STRIP TEST SCH ×4 (07:30→21:00)
[2022-01-09] MEDS: INSULIN LISPRO 100 UNITS/ML SUBCUT SCH ×4 (08:00→21:00)
[2022-01-09] MEDS: LOSARTAN POTASSIUM 50 MG TABLET PO SCH ×2 (09:00→15:02)
[2022-01-09] MEDS: ASPIRIN 81MG EC TABLET PO SCH (09:33)
[2022-01-09] MEDS: SEVELAMER CARBONATE 800 MG TABLET PO SCH ×3 (09:33→18:47)
[2022-01-09] MEDS: ACETAMINOPHEN 325MG TABLET PO PRN (13:20)
[2022-01-09] MEDS: CLONIDINE 0.1MG TABLET PO PRN (15:02)
[2022-01-09] MEDS ORDERED: EPOETIN ALFA-EPBX 4,000 UNIT/ML VIAL SUBCUT SCH (21:00)
[2022-01-10] VITALS (13 sets, daily range): BP systolic 125–183; BP diastolic 41–93
[2022-01-10] MEDS: ERYTHROMYCIN BASE 0.5% OPHTH OINT 3.5GM BOTHEYE SCH ×3 (01:30→18:39)
[2022-01-10] MEDS: CLONIDINE 0.1MG TABLET PO PRN ×2 (03:35→08:54)
[2022-01-10] MEDS: APIXABAN 2.5 MG TABLET PO SCH (07:00)
[2022-01-10] MEDS: BLOOD SUGAR DIAGNOSTIC STRIP TEST SCH ×4 (07:58→21:00)
[2022-01-10] MEDS: SEVELAMER CARBONATE 800 MG TABLET PO SCH ×3 (08:00→18:38)
[2022-01-10] MEDS: INSULIN LISPRO 100 UNITS/ML SUBCUT SCH ×4 (08:00→21:00)
[2022-01-10] MEDS: ASPIRIN 81MG EC TABLET PO SCH (09:00)
[2022-01-10] MEDS: LOSARTAN POTASSIUM 50 MG TABLET PO SCH (09:00)
[2022-01-10] MEDS: HYDRALAZINE 20MG/ML VIAL IV PRN ×2 (10:10→14:12)
[2022-01-10] MEDS ORDERED: NITROGLYCERIN 0.4MG/HR PATCH TOP SCH (10:45)
[2022-01-10] MEDS: NITROGLYCERIN OINT 1GM/INCH UDPKT TD SCH ×2 (11:15→12:22)
[2022-01-10] MEDS ORDERED: HEPARIN 1,000 UNITS PREMIX 0 ML IV ONE (14:05)
[2022-01-10] MEDS ORDERED: FENTANYL CITRATE/PF 50MCG/ML 2ML VIAL ONE (14:05)
[2022-01-10] MEDS ORDERED: MIDAZOLAM HCL 2 MG/2 ML VIAL ONE (14:05)
[2022-01-10] MEDS ORDERED: IODIXANOL 320MG/ML 100 ML BOTTLE IV ONE (14:05)
[2022-01-10] MEDS ORDERED: LIDOCAINE HCL 1% 20ML VIAL (Pyxis) INJ ONE (14:09)
[2022-01-10] MEDS ORDERED: GENTAMICIN/NS IRRIGATION 0 ML IR ONE (14:10)
[2022-01-11] VITALS (16 sets, daily range): BP systolic 130–199; BP diastolic 47–105
[2022-01-11] MEDS: ERYTHROMYCIN BASE 0.5% OPHTH OINT 3.5GM BOTHEYE SCH ×3 (01:30→19:02)
[2022-01-11 01:36] LABS: BASOPHILS % 0.8 % (0.0-2.0); EOSINOPHILS % 5.9 % (0.0-5.0); HEMATOCRIT. 30.4 % (42.0-52.0); HEMOGLOBIN. 10.2 g/dL (14.0-18.0); LYMPHOCYTES % 15.1 % (20.0-50.0); MEAN CORPUSCULAR HEMOGLOBIN 32.6 pg (28.0-32.0); MEAN CORPUSCULAR VOLUME 97.1 fL (80.0-94.0); MEAN PLATELET VOLUME 9.5 fl (7.4-10.4); MONOCYTES % 8.4 % (2.0-8.0); NEUTROPHILS % 69.8 % (40.0-76.0); PLATELET 80 x1000/uL (130-400); RED BLOOD CELL COUNT 3.13 mill/uL (4.7-6.1); RED CELL DISTRIBUTION WIDTH 15.2 % (11.6-14.6)
[2022-01-11 06:31] LABS: HEMOGLOBIN. 10.9 g/dL (14.0-18.0); LYMPHOCYTES % 16.3 % (20.0-50.0); MEAN CORPUSCULAR HEMOGLOBIN 32.4 pg (28.0-32.0); MEAN CORPUSCULAR VOLUME 98.2 fL (80.0-94.0); MEAN PLATELET VOLUME 9.1 fl (7.4-10.4); MONOCYTES % 7.7 % (2.0-8.0); PLATELET 89 x1000/uL (130-400); RED BLOOD CELL COUNT 3.36 mill/uL (4.7-6.1); RED CELL DISTRIBUTION WIDTH 15.7 % (11.6-14.6)
[2022-01-11] MEDS: NITROGLYCERIN OINT 1GM/INCH UDPKT TD SCH ×4 (06:45→21:04)
[2022-01-11] MEDS ORDERED: FENTANYL CITRATE/PF 50MCG/ML 2ML VIAL ONE (07:03)
[2022-01-11] MEDS ORDERED: GENTAMICIN/NS IRRIGATION 500 ML IR ONE (07:03)
[2022-01-11] MEDS ORDERED: LIDOCAINE HCL 1% 20ML VIAL (Pyxis) INJ ONE ×2 (07:03→07:32)
[2022-01-11] MEDS ORDERED: IODIXANOL 320MG/ML 100 ML BOTTLE IV ONE (07:03)
[2022-01-11] MEDS ORDERED: MIDAZOLAM HCL 2 MG/2 ML VIAL ONE (07:03)
[2022-01-11] MEDS ORDERED: CEFAZOLIN 1000MG PREMIX 100 ML IV ONE (07:14)
[2022-01-11] MEDS: BLOOD SUGAR DIAGNOSTIC STRIP TEST SCH ×4 (07:30→20:08)
[2022-01-11] MEDS: INSULIN LISPRO 100 UNITS/ML SUBCUT SCH ×4 (08:00→20:08)
[2022-01-11] MEDS: HYDRALAZINE 20MG/ML VIAL IV PRN (10:19)
[2022-01-11] MEDS: SEVELAMER CARBONATE 800 MG TABLET PO SCH ×3 (10:35→19:01)
[2022-01-11] MEDS: ASPIRIN 81MG EC TABLET PO SCH (10:35)
[2022-01-11] MEDS: ACETAMINOPHEN 325MG TABLET PO PRN ×2 (10:49→21:00)
[2022-01-11] MEDS: LOSARTAN POTASSIUM 50 MG TABLET PO SCH (12:23)
[2022-01-11] MEDS: CEFAZOLIN 1000MG PREMIX 50 ML IV SCH (15:50)
[2022-01-12] VITALS (15 sets, daily range): BP systolic 140–167; BP diastolic 55–76
[2022-01-12 01:23] LABS: HEPATITIS B SURFACE ANTIGEN NEGATIVE
[2022-01-12] MEDS: ACETAMINOPHEN 325MG TABLET PO PRN ×3 (01:46→16:08)
[2022-01-12] MEDS: CEFAZOLIN 1000MG PREMIX 50 ML IV SCH (01:47)
[2022-01-12] MEDS: ERYTHROMYCIN BASE 0.5% OPHTH OINT 3.5GM BOTHEYE SCH ×2 (01:48→09:30)
[2022-01-12] MEDS: NITROGLYCERIN OINT 1GM/INCH UDPKT TD SCH ×2 (05:26→14:37)
[2022-01-12] MEDS: HYDRALAZINE 20MG/ML VIAL IV PRN ×2 (05:26→16:09)
[2022-01-12] MEDS: INSULIN LISPRO 100 UNITS/ML SUBCUT SCH ×2 (08:00→13:00)
[2022-01-12] MEDS: BLOOD SUGAR DIAGNOSTIC STRIP TEST SCH ×2 (08:02→12:30)
[2022-01-12] MEDS: ASPIRIN 81MG EC TABLET PO SCH (08:07)
[2022-01-12] MEDS: SEVELAMER CARBONATE 800 MG TABLET PO SCH ×2 (08:07→14:35)
== END 2022-01-12 17:20 | disposition home health service (06) | DRG 242 ==
LOC: ER 09:33 → EDBEDREQ 13:58 → EDBEDREQTM 13:58 → 6WST 14:05 → ENRESERV 14:40 → 5EST 01-07 23:25
PROVIDERS: ADMIT Internal Medicine; ATTEND Internal Medicine
PROC: 5A1D70Z Performance of Urinary Filtration, Intermittent, Less than 6 Hours Per Day (ICD-10-PCS; 2022-01-07)
PROC: 5A1D70Z Performance of Urinary Filtration, Intermittent, Less than 6 Hours Per Day (ICD-10-PCS; 2022-01-09)
PROC: 0JH606Z Insertion of Pacemaker, Dual Chamber into Chest Subcutaneous Tissue and Fascia, Open Approach (ICD-10-PCS; principal; 2022-01-11)
PROC: 02H63JZ Insertion of Pacemaker Lead into Right Atrium, Percutaneous Approach (ICD-10-PCS; 2022-01-11)
PROC: 02HK3JZ Insertion of Pacemaker Lead into Right Ventricle, Percutaneous Approach (ICD-10-PCS; 2022-01-11)
PROC: 5A1D70Z Performance of Urinary Filtration, Intermittent, Less than 6 Hours Per Day (ICD-10-PCS; 2022-01-11)
DX: I49.5 Sick sinus syndrome (principal); I50.33 Acute on chronic diastolic (congestive) heart failure; N18.6 End stage renal disease; I13.2 Hypertensive heart and chronic kidney disease with heart failure and with stage 5 chronic kidney disease, or end stage renal disease; I48.20 Chronic atrial fibrillation, unspecified; E11.22 Type 2 diabetes mellitus with diabetic chronic kidney disease; F03.90 Unspecified dementia, unspecified severity, without behavioral disturbance, psychotic disturbance, mood disturbance, and anxiety; D63.1 Anemia in chronic kidney disease; E78.5 Hyperlipidemia, unspecified; I25.10 Atherosclerotic heart disease of native coronary artery without angina pectoris; Z99.2 Dependence on renal dialysis; Z86.73 Personal history of transient ischemic attack (TIA), and cerebral infarction without residual deficits; Z79.4 Long term (current) use of insulin; Z91.15 Patient's noncompliance with renal dialysis
CPT/HCPCS: 33208; 36415; 36600; 70486; 71045; 75820; 80048; 80053; 82375; 82550; 82553; 82805; 82962; 83605; 83735; 83880; 84100; 84145; 84484; 85025; 85379; 86705; 86709; 86803; 87340; 90935; 93005; 93306; 93970; 97166; 99285; C1785; C1893; C1898; J0360; J0461; J0610; J0690; J1644; J1815; J2250; J2405; J3010; J3490; Q9967